=== PATIENT | male | born 2000 | race Caucasian/White ===

== ENCOUNTER 2019-04-26 07:32 | Outpatient (CLI) | payer OTHER ==
[~2019-04-26] VITALS: Ht 172.7 cm; Wt 79.0 kg
[2019-04-26 08:06] VITALS: BP 111/67; PULSE 53; TEMP 97.9
[2019-04-26 10:04] VITALS: BP 112/80; PULSE 56
--- NOTE | 2019-04-26 10:04 | NUR ---
Pt returned from [facility] per w/c. Pt denies dizziness/lightheadedness. Pt resting in bed.
--- NOTE | 2019-04-26 10:30 | NUR ---
Pt discharged per ambulation to front of hospital.
== END 2019-04-26 10:33 | disposition home or self-care (01) ==
LOC: COL.CAR 07:32
DX: R55 Syncope and collapse (principal)